=== PATIENT | female | born 1995 | race Caucasian/White ===

== ENCOUNTER 2017-04-03 12:24 | Outpatient (CLI) | payer OTHER ==
--- NOTE | 2017-04-03 16:25 | RAD ---
LEFT SHOULDER TWO VIEWS: History: Disability evaluation. FINDINGS: Humeral head appears normally positioned. AC joint is normally aligned. No fracture, dislocation, deg enerative change or other acute abnormality. IMPRESSION: Unremarkable left shoulder. POS: [facility]
== END 2017-04-03 12:25 | disposition home or self-care (01) ==
LOC: NAV RAD 12:24
PROVIDERS: ATTEND Family Medicine
DX: M89.8X1 Other specified disorders of bone, shoulder (principal)